=== PATIENT | female | born 1940 | race Caucasian/White ===

== ENCOUNTER → 2016-11-01 | Outpatient (CLI) | payer MEDICARE, BC ==
--- NOTE | 2016-11-01 15:49 | BD ---
EXAMINATION TYPE: MG DEXA axial skeleton. DATE OF EXAM: 11/01/2016 COMPARISON: 02.05.2005 DEXA bone scan report. CLINICAL HISTORY: m85.80 osteopenia Height: 67.5 Weight: 209 FRAX RISK QUESTIONS: Alcohol (3 or more units per day): NO Family History (Parent hip fracture): YES Glucocorticoids (More than 3mos): NO (Ex: prednisone, prednisolone, methylprednisolone, dexamethasone, and hydrocortisone). History of Fracture in Adulthood: YES Secondary Osteoporosis: NO 1. Type 1 Diabetes: NO 2. Hyperthyroidism: NO 3. Menopause before 45: NO 4. Malnutrition: NO 5. Chronic liver disease: NO Rheumatoid Arthritis: NO Current Tobacco Use: NO RISK FACTORS HISTORY OF: Hip Fracture RT HIP AFTER RT HIP REPLACEMENT When: 2005 Spine Fracture: NO, BUT MANY EPIDURAL INJECTIONS When: ON AND OFF FOR YRS Surgery to RT HIP REPLACEMENT When: 2005 Other Fractures since Age 49: LT HUMERUS, RT HIP FX AFTER REPLACEMENT SURGERY When: > AGE 50 Family History of Osteoporosis: YES, HER MOTHER Smoke tobacco: NO Active: WHEEL/CHAIR BOUND Diet low in dairy products/other sources of calcium: YES, VERY LOW Postmenopausal woman: YES AT 49 YRS OLD Lost more than 2 inches in height since high school: YES Frequent falls: YES, IN WHEELCHAIR, FELL IN [place] WHILE UNDER CARE FOR HIP REPLACEMENT Adrenal Insufficiency: SAYS NO MEDICATIONS: Additional Medications: NORCO PRN, CELEBREX, PROZAC, XANAX PRN, CALCIUM AND VIT D, PROBIOTIC, MANY AN TIBIOTICS FOR ONGOING BLADDER INFECTIONS, Additional History: RT HIP REPLACEMENT, EPIDURALS INTO BACK ONLY, RT SHOULDER REPLACEMENT, LT SHOULD ER FRACTURE, WITH ROTATOR CUFF TEAR, HX OF ENDOMETRIAL CANCER, HX OF RADIATION, AND RADIATION SEEDS I NTO VAGINAL CANAL, OSTEOARTHRITIS, EXAM MEASUREMENTS: Bone mineral densitometry was performed using the [employer] System. Bone mineral density as measured about the Lumbar spine is: ----- L1-L4(G/cm2): 1.319 T Score Values are as follows: ----- L1: 0.4 ----- L2: 0.5 ----- L3: 0.9 ----- L4: 2.6 ----- L1-L4: 1.2 Bone mineral density has: Increased 10.7% since study of: 02.05.2005 Bone mineral density about the L hip (g/cm2): 0.924 T Score values are as follows: -----L Neck: -1.1 -----L Total: -0.7 Bone mineral density has: Decreased -6.4% since study of: 02.05.2005 FRAX %'S: THERE IS A 23.9% CHANCE OF A MAJOR OSTEOPOROTIC FX AND A 10.4% CHANCE OF A HIP FX.......P ROBABILITY IN 10 YRS TIME IMPRESSION: Osteopenia (T Score between -2.5 and -1 as noted by T score values There is slightly increased risk of fracture and the patient may be considered for treatment. Re-Screen 2-5 years at femoral neck level in the left hip NOTE: T-SCORE=SD OF THE YOUNG ADULT MEAN.
== END | disposition home or self-care (01) ==
LOC: RADBDWWP 14:15
PROVIDERS: ATTEND Obstetrics & Gynecology
DX: M85.80 Other specified disorders of bone density and structure, unspecified site (principal)
CPT/HCPCS: 77080

== ENCOUNTER 2017-08-28 12:15 | Emergency (ER) | payer MEDICARE, BC ==
[2017-08-28] MEDS ORDERED: MORPHINE SULFATE 4MG/4ML SYRG IM STA (12:45)
[2017-08-28] MEDS ORDERED: IBUPROFEN 800 MG TAB PO STA (12:46)
--- NOTE | 2017-08-28 12:47 | ED ---
General Adult HPI - General Chief complaint: Extremity Injury, Lower Stated complaint: Knee Pain-Fall Time Seen by Provider: 08/28/17 12:25 Source: patient, RN notes reviewed, old records reviewed Mode of arrival: wheelchair Limitations: no limitations - History of Present Illness Initial comments: This is a 69-year-old female to the ER for evaluation of right hip pain and right leg pain and knee pain. Multiple joint pain but this is chronic in nature. She states has history of multiple joint replacements and was getting off the toilet or bed this morning and she felt some strain into her right leg. Currently she has has pain when bearing weight. No other traumatic injury is noted - Related Data Home Medications Medication Instructions Recorded Confirmed Celecoxib [CeleBREX] 200 mg PO DAILY 02/26/16 02/26/16 FLUoxetine HCL [PROzac] 20 mg PO DAILY 02/26/16 02/26/16 Loperamide [Imodium] 2 - 6 mg PO TID PRN 02/26/16 02/26/16 Previous Rx's Medication Instructions Recorded ALPRAZolam [Xanax] 0.5 mg PO BID PRN #60 tab 03/01/16 HYDROcodone/APAP 10-325MG [[place] 1 each PO Q4HR PRN #75 tab 03/01/16 10-325] Allergies Allergy/AdvReac Type Severity Reaction Status Date / Time clarithromycin [From Biaxin] Allergy Anaphylaxis Verified 08/28/17 12:23 atropine [From Lomotil] AdvReac Does not Verified 08/28/17 12:23 work for patient diphenoxylate [From Lomotil] AdvReac Does not Verified 08/28/17 12:23 work for patient Review of Systems ROS Statement: Those systems with pertinent positive or pertinent negative responses have been documented in the HPI. ROS Other: All systems not noted in ROS Statement are negative. Past Medical History Past Medical History: Osteoarthritis (OA) Additional Past Medical History / Comment(s): osteoporosis, uterine/endometrial ca with radiation(rods), History of Any Multi-Drug Resistant Organisms: None Reported Past Surgical History: Hernia Repair, Hysterectomy, Joint Replacement, Orthopedic Surgery Additional Past Surgical History / Comment(s): hemroidectomy, hernia sx Past Anesthesia/Blood Transfusion Reactions: No Reported Reaction Past Psychological History: No Psychological Hx Reported Smoking Status: Never smoker Past Alcohol Use History: None Reported Past Drug Use History: None Reported - Past Family History Mother Family Medical History: Osteoarthritis (OA) General Exam Limitations: no limitations General appearance: alert, in no apparent distress Head exam: Present: atraumatic, normocephalic, normal inspection Eye exam: Present: normal appearance, PERRL, EOMI. Absent: scleral icterus, conjunctival injection, periorbital swelling ENT exam: Present: normal exam, mucous membranes moist Neck exam: Present: normal inspection. Absent: tenderness, meningismus, lymphadenopathy Respiratory exam: Present: normal lung sounds bilaterally. Absent: respiratory distress, wheezes, rales, rhonchi, stridor Cardiovascular Exam: Present: regular rate, normal rhythm, normal heart sounds. Absent: systolic murmur, diastolic murmur, rubs, gallop, clicks GI/Abdominal exam: Present: soft, normal bowel sounds. Absent: distended, tenderness, guarding, rebound, rigid Extremities exam: Present: normal inspection, full ROM, normal capillary refill. Absent: tenderness, pedal edema, joint swelling, calf tenderness Back exam: Present: normal inspection Neurological exam: Present: alert, oriented X3, CN II-XII intact Psychiatric exam: Present: normal affect, normal mood Skin exam: Present: warm, dry, intact, normal color. Absent: rash Course Vital Signs 08/28/17 12:19 Temperature 97.9 F Pulse Rate 76 Respiratory 20 Rate Blood Pressure 151/71 O2 Sat by Pulse 100 Oximetry - Reevaluation(s) Reevaluation #1: 08/28/17 13:42 Patient is refusing pain medication. Medical Decision Making - Medical Decision Making 77 female the ER with right hip pain and decrease strength of right leg secondary to muscle strain. X-rays negative for traumatic injury, patient to be discharged home - Radiology Data Radiology results: report reviewed (X-ray pelvis, x-ray right hip x-ray right knee negative for traumatic injury), image reviewed Disposition Clinical Impression: Osteoarthritis, Right hip pain, Right knee pain Disposition: HOME SELF-CARE Condition: Good Instructions: Arthritis (ED), Hip Pain (ED) Referrals: Sampson Cordon MD [Primary Care Provider] - 1-2 days
[2017-08-28] MEDS ORDERED: HYDROcodone/APAP 7.5-325MG 1 EACH TAB PO ONE (12:56)
--- NOTE | 2017-08-28 13:31 | XR ---
EXAMINATION TYPE: XR pelvis AP view , ONE VIEW DATE OF EXAM ORDERED: 08/28/2017 HISTORY: Pain. COMPARISON: None. FINDINGS: Right hip arthroplasty is in place. Prosthetic elements appear in good position. There is sclerosis of both SI joints. There is degenerative change present within the lower lumbar spine. No a cute fracture is seen. IMPRESSION: 1. NO ACUTE OSSEOUS LESION. 2. STATUS POST RIGHT HIP ARTHROPLASTY.
--- NOTE | 2017-08-28 13:32 | XR ---
EXAMINATION TYPE: XR Hip Complete RT , 2 VIEWS DATE OF EXAM ORDERED: 08/28/2017 HISTORY: Pain. COMPARISON: None. FINDINGS: A right hip arthroplasty is in place. Prosthetic elements appear in good position. There i s some heterotopic new bone present. No fracture is identified. IMPRESSION: STATUS POST RIGHT HIP ARTHROPLASTY.
--- NOTE | 2017-08-28 13:37 | XR ---
EXAMINATION TYPE: XR knee complete RT , 3 VIEWS DATE OF EXAM ORDERED: 08/28/2017 HISTORY: Pain. COMPARISON: None. FINDINGS: There is marked hypertrophic changes in the patellofemoral joint. No definite effusion is seen. There are mild remodeling changes in the medial and lateral compartments. No definite joint eff usion is seen. There is a tiny exostosis arising from the proximal right fibular diaphysis. IMPRESSION: NO ACUTE OSSEOUS LESION.
[2017-08-28 14:11] VITALS: BP 130/63; PULSE 64; RESP 18; TEMP 98
== END 2017-08-28 14:26 | disposition home or self-care (01) ==
LOC: EC 12:15
DX: M16.11 Unilateral primary osteoarthritis, right hip (principal); M17.11 Unilateral primary osteoarthritis, right knee; M81.0 Age-related osteoporosis without current pathological fracture; Z85.42 Personal history of malignant neoplasm of other parts of uterus; Z79.1 Long term (current) use of non-steroidal anti-inflammatories (NSAID); Z96.641 Presence of right artificial hip joint; Z79.899 Other long term (current) drug therapy; Z88.1 Allergy status to other antibiotic agents; Z88.8 Allergy status to other drugs, medicaments and biological substances; Z53.29 Procedure and treatment not carried out because of patient's decision for other reasons; X50.9XXA Other and unspecified overexertion or strenuous movements or postures, initial encounter
CPT/HCPCS: 72170; 73502; 99284

== ENCOUNTER 2018-06-18 11:29 | Emergency (ER) | payer MEDICARE, BC ==
[2018-06-18 11:41] VITALS: BP 136/64; PULSE 69; RESP 18; TEMP 98.1
--- NOTE | 2018-06-18 12:49 | XR ---
EXAMINATION TYPE: XR chest 1V DATE OF EXAM: 06/18/2018 HISTORY: Shortness of breath. COMPARISON: 03/02/2016 TECHNIQUE: Single view of the chest is submitted. FINDINGS: Demonstrated are scattered senescent parenchymal change. There is no evidence for focal infiltrate. The heart is stable. Hilar and mediastinal structures are within normal limits. Degenerative changes are seen of the dorsal spine. IMPRESSION: 1. Chronic changes without evidence for acute pulmonary disease.
--- NOTE | 2018-06-18 12:52 | XR ---
EXAMINATION TYPE: XR Hip RT and AP Pelvis DATE OF EXAM: 06/18/2018 COMPARISON: NONE HISTORY: Pain TECHNIQUE: A single AP view of the pelvis is obtained. Two views of the right hip are obtained. FINDINGS: No evidence for acute fracture or dislocation. Sclerosis about the right SI joint and to a lesser extent the sagittal may reflect sacroiliitis. Underlying lesion is not excluded right hemisacr um. There is right total right hip arthroplasty. IMPRESSION: There is no acute fracture or dislocation in the pelvis or right hip.
--- NOTE | 2018-06-18 12:52 | XR ---
EXAMINATION TYPE: XR elbow complete RT DATE OF EXAM: 06/18/2018 CLINICAL HISTORY: pain TECHNIQUE: Frontal, lateral and oblique images of the right elbow are obtained. COMPARISON: None. FINDINGS: There is no acute fracture/dislocation evident of the elbow. No abnormal fat pad signs ar e seen. The overlying soft tissue appears unremarkable. Olecranon spurring noted. IMPRESSION: There is no acute fracture or dislocation of the elbow. ICD 10 NO FRACTURE, INITIAL EVALUATION
--- NOTE | 2018-06-18 12:53 | XR ---
EXAMINATION TYPE: XR hand complete RT DATE OF EXAM: 06/18/2018 CLINICAL HISTORY: pain TECHNIQUE: Frontal, lateral and oblique images of the right hand are obtained. COMPARISON: None. FINDINGS: There is no acute fracture/dislocation evident. Moderate to severe degenerative joint spac e narrowing involving the first carpal metacarpal joint with bony fragmentation and spur formation no victorina. Severe narrowing of various DIP joints. The overlying soft tissue appears unremarkable. IMPRESSION: There is no acute fracture or dislocation ICD 10 NO FRACTURE, INITIAL EVALUATION
--- NOTE | 2018-06-18 12:54 | XR ---
EXAMINATION TYPE: XR shoulder complete RT DATE OF EXAM: 06/18/2018 CLINICAL HISTORY: pain TECHNIQUE: Three views of the right shoulder are obtained. COMPARISON: None FINDINGS: Proximal right humeral prosthesis. Severe degenerative narrowing glenohumeral joint space a nd remodeling of the glenoid. Narrowing subacromial joint space may reflect chronic rotator cuff tear . No acute fractures evident at this time. IMPRESSION: 1. There is no acute fracture or dislocation. ICD 10 NO FRACTURE, INITIAL EVALUATION
[2018-06-18] MEDS ORDERED: DIPH,PERTUS(ACELL)TETVAC-LF 0.5 ML VIAL IM ONE (12:57)
--- NOTE | 2018-06-18 13:04 | ED ---
Fall HPI - General Chief Complaint: Fall Stated Complaint: Fall Time Seen by Provider: 06/18/18 11:30 Source: patient, EMS, RN notes reviewed Mode of arrival: EMS Limitations: no limitations - History of Present Illness Initial Comments: This is a 78-year-old female presents emergency department via EMS chief complaint trip and fall. Patient states she fell over one step. Denies head injury no loss conscious. Denies any blood thinners. Patient primary complains of right arm pain including hand, elbow and right shoulder. She has had a right shoulder replacement. Patient also complains of right hip pain. She's had 2 prior replacement on his hip by Dr. Dsouza. Patient denies any back pain, chest pain, shortness breath, syncopal episode. Patient was given fentanyl by EMS which has resulted pain. Patient does have abrasion to her right elbow is unsure when her last tetanus was. - Related Data Home Medications Medication Instructions Recorded Confirmed Celecoxib [CeleBREX] 200 mg PO DAILY 02/26/16 06/18/18 FLUoxetine HCL [PROzac] 20 mg PO DAILY 02/26/16 06/18/18 ALPRAZolam [Xanax] 1 mg PO BID PRN 06/18/18 06/18/18 Diphenox-Atrop 2.5-0.025 mg 1 tab PO 5XD PRN 06/18/18 06/18/18 [Lomotil] HYDROcodone/APAP 7.5-325MG [[place] 1 tab PO Q6H PRN 06/18/18 06/18/18 7.5-325] Multivitamins, Thera [Multivitamin 1 tab PO DAILY 06/18/18 06/18/18 (formulary)] Allergies Allergy/AdvReac Type Severity Reaction Status Date / Time clarithromycin [From Biaxin] Allergy Anaphylaxis Verified 06/18/18 12:00 atropine [From Lomotil] AdvReac Does not Verified 06/18/18 12:00 work for patient diphenoxylate [From Lomotil] AdvReac Does not Verified 06/18/18 12:00 work for patient Review of Systems ROS Statement: Those systems with pertinent positive or pertinent negative responses have been documented in the HPI. ROS Other: All systems not noted in ROS Statement are negative. Past Medical History Past Medical History: Osteoarthritis (OA) Additional Past Medical History / Comment(s): osteoporosis, uterine/endometrial ca with radiation(rods), History of Any Multi-Drug Resistant Organisms: None Reported Past Surgical History: Hernia Repair, Hysterectomy, Joint Replacement, Orthopedic Surgery Additional Past Surgical History / Comment(s): hemroidectomy, hernia sx Past Anesthesia/Blood Transfusion Reactions: No Reported Reaction Past Psychological History: No Psychological Hx Reported Smoking Status: Never smoker Past Alcohol Use History: None Reported Past Drug Use History: None Reported - Past Family History Mother Family Medical History: Osteoarthritis (OA) General Exam Limitations: no limitations General appearance: alert, in no apparent distress Head exam: Present: atraumatic, normocephalic, normal inspection Eye exam: Present: normal appearance, PERRL, EOMI. Absent: scleral icterus, conjunctival injection, periorbital swelling Neck exam: Present: normal inspection, full ROM. Absent: tenderness, meningismus, lymphadenopathy Respiratory exam: Present: normal lung sounds bilaterally. Absent: respiratory distress, wheezes, rales, rhonchi, stridor, chest wall tenderness Cardiovascular Exam: Present: regular rate, normal rhythm, normal heart sounds. Absent: systolic murmur, diastolic murmur, rubs, gallop, clicks GI/Abdominal exam: Present: soft, normal bowel sounds. Absent: distended, tenderness, guarding, rebound, rigid Extremities exam: Present: other (Right elbow there is an abrasion noted, tenderness the right elbow right hand right shoulder limited range of motion secondary to pain neurovascular intact no obvious deformity. Right hip tenderness with palpation, mild discomfort with range of motion neurovascular intact) Back exam: Present: full ROM. Absent: tenderness, paraspinal tenderness, vertebral tenderness Neurological exam: Present: alert, oriented X3, CN II-XII intact, reflexes normal. Absent: motor sensory deficit Skin exam: Present: warm, dry, intact, normal color. Absent: rash Course Vital Signs 06/18/18 11:38 Temperature 98.1 F Pulse Rate 69 Respiratory 18 Rate Blood Pressure 136/64 O2 Sat by Pulse 97 Oximetry Medical Decision Making - Medical Decision Making 78-year-old female presented for a fall. Patient had x-rays of her right shoulder elbow and right hand and along with right hip and pelvis with no acute fracture findings. Patient was able to stand and ambulate in the room with no difficulty. Patient was offered pain medication at home patient declines. Patient will be discharged with close follow-up with her orthopedic surgeon and primary care physician. Disposition Clinical Impression: Fall, Contusion of right hip, Right shoulder pain, Abrasion of right elbow Disposition: HOME SELF-CARE Condition: Stable Instructions (If sedation given, give patient instructions): Fall Prevention for Older Adults (ED), Hip Contusion (ED) Additional Instructions: Please return to the Emergency Department if symptoms worsen or any other concerns. Is patient prescribed a controlled substance at d/c from ED?: No Referrals: Sampson Cordon MD [Primary Care Provider] - 1-2 days Time of Disposition: 14:16
[2018-06-18] MEDS ORDERED: fentaNYL (PF) 50 MCG/ML 2 ML AMP IVP STA (13:40)
== END 2018-06-18 14:28 | disposition home or self-care (01) ==
LOC: EC 11:29
DX: S70.01XA Contusion of right hip, initial encounter (principal); S50.311A Abrasion of right elbow, initial encounter; M25.511 Pain in right shoulder; M79.601 Pain in right arm; M79.641 Pain in right hand; M19.90 Unspecified osteoarthritis, unspecified site; Z88.1 Allergy status to other antibiotic agents; Z88.8 Allergy status to other drugs, medicaments and biological substances; Z79.1 Long term (current) use of non-steroidal anti-inflammatories (NSAID); Z79.899 Other long term (current) drug therapy; Z85.42 Personal history of malignant neoplasm of other parts of uterus; Z96.611 Presence of right artificial shoulder joint; Z92.3 Personal history of irradiation; Z96.641 Presence of right artificial hip joint; Z23 Encounter for immunization; Z90.710 Acquired absence of both cervix and uterus; Z82.61 Family history of arthritis; W10.9XXA Fall (on) (from) unspecified stairs and steps, initial encounter; Y93.01 Activity, walking, marching and hiking; Y92.009 Unspecified place in unspecified non-institutional (private) residence as the place of occurrence of the external cause
CPT/HCPCS: 73502; 73030; 73080; 73130; 71045; 90715; 99284; 96374; 90471; J3010

== ENCOUNTER 2021-05-30 07:00 | Emergency (ER) | payer BC, MEDICARE ==
[2021-05-30] MEDS ORDERED: SODIUM CHLORIDE 0.9% 500 ML 500 ML IV ONE (07:41)
[2021-05-30] MEDS ORDERED: ACETAMINOPHEN TAB 500 MG TAB PO STA (07:41)
--- NOTE | 2021-05-30 07:50 | ED ---
General Adult HPI - General Chief complaint: Upper Respiratory Infection Stated complaint: Covid+, Headache, Bodyaches Time Seen by Provider: 05/30/21 07:15 Source: patient, RN notes reviewed, old records reviewed Mode of arrival: wheelchair Limitations: no limitations - History of Present Illness Initial comments: This is an 81-year-old female who presents to the emergency department stating she was having some congestion and body aches for the last 6-7 days. Patient states she was tested for COVID yesterday and was positive. Patient is here to get the monoclonal antibodies. Patient states she's only short of breath if she exerts herself and walks around a lot. Patient states she did not get the vaccine were booster. Patient denies any fever currently. Patient denies any chest pain or palpitations. Patient states while sitting in bed she has no shortness of breath per patient denies abdominal pain patient denies nausea vomiting diarrhea. Patient states she feels very fatigued and has body aches and some congestion. - Related Data Home Medications Medication Instructions Recorded Confirmed Celecoxib [CeleBREX] 200 mg PO DAILY 02/26/16 06/18/18 FLUoxetine HCL [PROzac] 20 mg PO DAILY 02/26/16 06/18/18 ALPRAZolam [Xanax] 1 mg PO BID PRN 06/18/18 06/18/18 Diphenox-Atrop 2.5-0.025 mg 1 tab PO 5XD PRN 06/18/18 06/18/18 [Lomotil] HYDROcodone/APAP 7.5-325MG [[place] 1 tab PO Q6H PRN 06/18/18 06/18/18 7.5-325] Multivitamins, Thera [Multivitamin 1 tab PO DAILY 06/18/18 06/18/18 (formulary)] Allergies Allergy/AdvReac Type Severity Reaction Status Date / Time clarithromycin [From Biaxin] Allergy Anaphylaxis Verified 06/18/18 12:00 sulfamethoxazole Allergy Nausea & Verified 05/30/21 07:21 [From Bactrim] Vomiting & Diarrhea trimethoprim [From Bactrim] Allergy Nausea & Verified 05/30/21 07:21 Vomiting & Diarrhea atropine [From Lomotil] AdvReac Does not Verified 06/18/18 12:00 work for patient diphenoxylate [From Lomotil] AdvReac Does not Verified 06/18/18 12:00 work for patient Review of Systems ROS Statement: Those systems with pertinent positive or pertinent negative responses have been documented in the HPI. ROS Other: All systems not noted in ROS Statement are negative. Past Medical History Past Medical History: Osteoarthritis (OA) Additional Past Medical History / Comment(s): osteoporosis, uterine/endometrial ca with radiation(rods), History of Any Multi-Drug Resistant Organisms: None Reported Past Surgical History: Hernia Repair, Hysterectomy, Joint Replacement, Orthopedic Surgery Additional Past Surgical History / Comment(s): hemroidectomy, hernia sx Past Anesthesia/Blood Transfusion Reactions: No Reported Reaction Past Psychological History: Anxiety, Depression Smoking Status: Never smoker Past Alcohol Use History: None Reported Past Drug Use History: None Reported - Past Family History Mother Family Medical History: Osteoarthritis (OA) General Exam - General Exam Comments Initial Comments: GENERAL: Patient is well-developed and well-nourished. Patient is nontoxic and well- hydrated and is in mild distress. ENT: Neck is soft and supple. No significant lymphadenopathy is noted. Oropharynx is clear. Moist mucous membranes. Neck has full range of motion without eliciting any pain. EYES: The sclera were anicteric and conjunctiva were pink and moist. Extraocular movements were intact and pupils were equal round and reactive to light. Eyelids were unremarkable. PULMONARY: Unlabored respirations. Good breath sounds bilaterally. No audible rales rhonchi or wheezing was noted. CARDIOVASCULAR: There is a regular rate and rhythm without any murmurs gallops or rubs. ABDOMEN: Soft and nontender with normal bowel sounds. SKIN: Skin is clear with no lesions or rashes and otherwise unremarkable. NEUROLOGIC: Patient is alert and oriented x3. Cranial nerves II through XII are grossly intact. Motor and sensory are also intact. Normal speech, volume and content. Symmetrical smile. MUSCULOSKELETAL: Normal extremities with adequate strength and full range of motion. LYMPHATICS: No significant lymphadenopathy is noted PSYCHIATRIC: Normal psychiatric evaluation. Limitations: no limitations Course Vital Signs 05/30/21 05/30/21 07:15 08:56 Temperature 98.7 F Pulse Rate 72 70 Respiratory 22 16 Rate Blood Pressure 125/77 147/64 O2 Sat by Pulse 96 97 Oximetry Medical Decision Making - Medical Decision Making Patient states she has chronic lower back pain and wanted something in addition to the Tylenol Motrin for pain she received a half a milligram of Dilaudid. Patient qualified and was given monoclonal antibodies. Patient's chest x-ray was normal. Disposition Clinical Impression: COVID-19 Disposition: HOME SELF-CARE Condition: Good Instructions (If sedation given, give patient instructions): Coronavirus Disease 2019 (COVID-19) Is patient prescribed a controlled substance at d/c from ED?: No Referrals: Sampson Cordon MD [Primary Care Provider] - 1-2 days Time of Disposition: 09:49
[2021-05-30] MEDS ORDERED: IBUPROFEN IV 600 MG in SODIUM CHLORIDE 0.9% 250 ML IV ONE (08:00)
[2021-05-30] MEDS ORDERED: SODIUM CHLORIDE 0.9% 50 ML IVPB ONE (08:20)
[2021-05-30] MEDS ORDERED: SOTROVIMAB (EUA) 500 MG in SODIUM CHLORIDE 0.9% 100 ML IVPB ONE ×4 (08:20)
--- NOTE | 2021-05-30 08:28 | XR ---
EXAMINATION TYPE: XR chest 2V DATE OF EXAM: 05/30/2021 COMPARISON: 06/18/2018 HISTORY: Shortness of breath TECHNIQUE: Frontal and lateral views of the chest are obtained. FINDINGS: There is no focal air space opacity, pleural effusion, or pneumothorax seen. The cardiac silhouette size is within normal limits. There is a prosthesis of the right shoulder and remote traum a to the proximal left humerus. IMPRESSION: No acute cardiopulmonary process.
[2021-05-30 08:57] VITALS: RESP 16
[2021-05-30] MEDS ORDERED: HYDROmorphone 0.5 MG/0.5 ML SYRINGE IVP STA (09:48)
[2021-05-30 10:39] VITALS: BP 138/60; PULSE 66; TEMP 97.7
== END 2021-05-30 10:37 | disposition home or self-care (01) ==
LOC: EC 07:00
DX: U07.1 COVID-19 (principal); M19.90 Unspecified osteoarthritis, unspecified site; F41.9 Anxiety disorder, unspecified; F32.A Depression, unspecified; Z88.1 Allergy status to other antibiotic agents; Z88.2 Allergy status to sulfonamides; Z90.710 Acquired absence of both cervix and uterus
CPT/HCPCS: 99284; 96365; 96375; 71046; J1741; J1170; Q0247